=== PATIENT | female | born 1990 | race Two or more races ===

== ENCOUNTER 2023-12-29 08:16 | Inpatient (IN) | payer OTHER ==
[~2023-12-29] VITALS: Ht 165.1 cm; Wt 95.3 kg
[2023-12-29] MEDS ORDERED: RINGERS SOLUTION,LACTATED 1,000 ML IV SCH (08:30)
[2023-12-29] MEDS ORDERED: AMPICILLIN SODIUM 2,000 MG VIAL IV ONE (08:30)
[2023-12-29] MEDS ORDERED: AMPICILLIN SODIUM 1,000 MG VIAL IV SCH (09:00)
[2023-12-29] MEDS ORDERED: PRENATAL TABLE1 EAC4 PO (09:34)
[2023-12-29] MEDS ORDERED: IRON236 MG PO (09:34)
[2023-12-29 09:44] LABS: PH,URINE 6.5 (5.0-8.0); URINE APPEARANCE Turbid; URINE BILIRRUBIN Negative (NEGATIVE); URINE BLOOD Small; URINE COLOR Dark Yellow; URINE GLUCOSE Negative (NEGATIVE); URINE LEUKOCYTE Moderate; URINE NITRATE Negative
[2023-12-29 09:45] LABS: URINE EPITHELIAL CELLS 97.7 uL (0.0-38.8); URINE RBC 187.3 uL (0.0-20.8); URINE WBC 368.8 uL (0.0-23.2)
[2023-12-29 09:54] LABS: HEMATOCRIT 29.3 % (36.0-45.00); MEAN CELL VOLUME 86.8 fL (80.00-100.00); MEAN CORPUSCULAR HEMOGLOBIN 29.6 pg (27.00-32.0); MEAN CORPUSCULAR HGB CONC 34.1 g/dl (32.0-36.0); PLATELET COUNT 330 K/uL (150-450); RED BLOOD COUNT 3.38 M/uL (4.00-6.00); RED CELL DISTRIBUTION WIDTH 16.3 % (11.5-14.5)
[2023-12-29] MEDS ORDERED: OXYTOCIN 500 ML IV SCH (10:00)
[2023-12-29 10:13] LABS: INR 0.96; PROTHROMBIN TIME 10.1 SECONDS (9.0-11.5)
[2023-12-29] MEDS ORDERED: FAMOTIDINE/PF 20 MG/2 ML VIAL IV PUSH NR (10:15)
[2023-12-29 10:16] LABS: ALBUMIN 2.8 gm/dL (3.4-5.0); BILIRUBIN TOTAL 0.3 mg/dL (0.3-1.2); CALCIUM 9.1 mg/dL (8.5-10.1); CREATININE SERUM 0.52 mg/dL (0.55-1.02); GFR 134.19; GLOBULINA 3.6 G/DL (2.4-3.5); POTASSIUM 3.93 mEq/L (3.5-5.1); TOTAL PROTEIN 6.4 gm/dL (6.4-8.2)
[2023-12-29 10:28] LABS: URINE BACTERIA > 9821.5 uL (0.0-1933); URINE PROTEIN 100 (NEGATIVE)
[2023-12-29 10:36] LABS: URINE CRYSTALS MODERATE /HPF; URINE YEAST NEGATIVE /hpf
[2023-12-29] MEDS ORDERED: MORPHINE SULFATE 4 MG/ML CARTRIDGE IV PRN (13:45)
[2023-12-29] MEDS ORDERED: PROMETHAZINE HCL 25 MG/ML AMPUL IV ONE (15:45)
[2023-12-29] MEDS ORDERED: CEFAZOLIN SODIUM 1,000 MG VIAL IV SCH (21:30)
[2023-12-29] MEDS ORDERED: CITRIC ACID/SODIUM CITRATE 30 ML BLIST.PACK PO SCH (21:30)
[2023-12-29] MEDS ORDERED: CHLORHEXIDINE GLUCONATE 120 ML BOTTLE TOP ONE (23:45)
[2023-12-30] MEDS ORDERED: AZITHROMYCIN 500 MG VIAL IV ONE (00:15)
[2023-12-30] MEDS ORDERED: OXYTOCIN 1,000 ML IV ONE (00:30)
[2023-12-30] MEDS ORDERED: KETOROLAC TROMETHAMINE 30 MG VIAL IV SCH (00:30)
[2023-12-30] MEDS ORDERED: ERYTHROMYCIN BASE 1 GM TUBE OP ONE (00:45)
[2023-12-30] MEDS ORDERED: OXYTOCIN 10 UNIT/ML (10ML) IV ONE (00:45)
[2023-12-30] MEDS ORDERED: MORPHINE SULFATE 4 MG/ML VIAL IV SCH (01:00)
[2023-12-30] MEDS ORDERED: ACETAMINOPHEN 500 MG GEL..CAP PO SCH (06:00)
[2023-12-30 08:00] LABS: ALBUMIN 2.2 gm/dL (3.4-5.0); BILIRUBIN TOTAL 0.69 mg/dL (0.3-1.2); CALCIUM 8.5 mg/dL (8.5-10.1); CREATININE SERUM 0.46 mg/dL (0.55-1.02); GFR 154.58; GLOBULINA 3.1 G/DL (2.4-3.5); HEMATOCRIT 28.7 % (36.0-45.00); HEMOGLOBIN 9.7 g/dL (12.0-15.00); MEAN CELL VOLUME 88.3 fL (80.00-100.00); PLATELET COUNT 297 K/uL (150-450); POTASSIUM 3.95 mEq/L (3.5-5.1); RED BLOOD COUNT 3.25 M/uL (4.00-6.00); RED CELL DISTRIBUTION WIDTH 16.1 % (11.5-14.5); TOTAL PROTEIN 5.3 gm/dL (6.4-8.2)
[2023-12-30] MEDS ORDERED: PNV,CALCIUM 72/IRON/FOLIC ACID 1 TAB TABLET PO SCH (09:00)
[2023-12-30] MEDS ORDERED: GABAPENTIN 300 MG CAPSULE PO SCH (09:00)
[2023-12-30] MEDS ORDERED: SIMETHICONE 125 MG CAPSULE PO SCH (09:00)
[2023-12-30] MEDS ORDERED: DOCUSATE SODIUM 100MG CAP PO SCH (09:00)
[2023-12-30] MEDS ORDERED: IBUprofen 600 MG TABLET PO SCH (12:00)
[2024-01-01] MEDS ORDERED: ERYTHROMYCIN BASE 1 GM TUBE OP ONE (18:00)
[2024-01-01] MEDS ORDERED: OXYTOCIN 10 UNITS/ML VIAL IV ONE (18:00)
== END 2023-12-31 13:58 | disposition home or self-care (01) | DRG 788 ==
LOC: OB/GYN 08:16 → LDR 08:16 → OB/GYN 12-30 00:35
PROVIDERS: ADMIT Obstetrics & Gynecology Gynecology; ATTEND Obstetrics & Gynecology Gynecology
PROC: 10D00Z1 Extraction of Products of Conception, Low, Open Approach (ICD-10-PCS; principal; 2023-12-29)
PROC: 4A1HXCZ Monitoring of Products of Conception, Cardiac Rate, External Approach (ICD-10-PCS; 2023-12-29)
DX: O82 Encounter for cesarean delivery without indication (principal); O62.1 Secondary uterine inertia; O99.824 Streptococcus B carrier state complicating childbirth; Z3A.38 38 weeks gestation of pregnancy; Z37.0 Single live birth; Z20.822 Contact with and (suspected) exposure to COVID-19

== ENCOUNTER 2024-01-06 17:25 | Inpatient (IN) | payer OTHER ==
[~2024-01-06] VITALS: Ht 165.1 cm; Wt 87.5 kg
[~2024-01-06 17:25] MED LIST: IRON236 MG PO; PRENATAL TABLE1 EAC4 PO
[2024-01-06] MEDS ORDERED: hydrALAZINE HCL 20 MG VIAL IV STA (17:50)
[2024-01-06] MEDS ORDERED: MAGNESIUM SULFATE IN WATER 100 ML IV ONE (18:00)
[2024-01-06] MEDS ORDERED: RINGERS SOLUTION,LACTATED 1,000 ML IV SCH (18:00)
[2024-01-06] MEDS ORDERED: MAGNESIUM SULFATE IN WATER 500 ML IV SCH (18:00)
[2024-01-06] MEDS ORDERED: SIMETHICONE 125 MG CAPSULE PO SCH (18:27)
[2024-01-06] MEDS ORDERED: ACETAMINOPHEN 500 MG GEL..CAP PO PRN (18:30)
[2024-01-06] MEDS ORDERED: FAMOTIDINE/PF 20 MG/2 ML VIAL IV PUSH SCH (18:30)
[2024-01-06] MEDS ORDERED: LABETALOL HCL 200 MG TABLET PO SCH (19:00)
[2024-01-06 19:08] LABS: HEMATOCRIT 29.9 % (36.0-45.00); HEMOGLOBIN 10.2 g/dL (12.0-15.00); MEAN CELL VOLUME 89.2 fL (80.00-100.00); MEAN CORPUSCULAR HEMOGLOBIN 30.4 pg (27.00-32.0); MEAN CORPUSCULAR HGB CONC 34.1 g/dl (32.0-36.0); PLATELET COUNT 576 K/uL (150-450); RED BLOOD COUNT 3.35 M/uL (4.00-6.00); RED CELL DISTRIBUTION WIDTH 17.4 % (11.5-14.5)
[2024-01-06 19:22] LABS: INR 1.06; PARTIAL THROMBOPLASTIN TIME 31.3 SECONDS (22.0-34.0); PROTHROMBIN TIME 11.1 SECONDS (9.0-11.5)
[2024-01-06 19:27] LABS: ALBUMIN 3.3 gm/dL (3.4-5.0); BILIRUBIN TOTAL 0.38 mg/dL (0.3-1.2); CALCIUM 9.1 mg/dL (8.5-10.1); CREATININE SERUM 0.72 mg/dL (0.55-1.02); GFR 92.18; GLOBULINA 3.4 G/DL (2.4-3.5); POTASSIUM 3.96 mEq/L (3.5-5.1); TOTAL PROTEIN 6.7 gm/dL (6.4-8.2)
[2024-01-07 06:54] LABS: HEMOGLOBIN 10.3 g/dL (12.0-15.00); MEAN CELL VOLUME 88.4 fL (80.00-100.00); MEAN CORPUSCULAR HEMOGLOBIN 29.4 pg (27.00-32.0); MEAN CORPUSCULAR HGB CONC 33.2 g/dl (32.0-36.0); PLATELET COUNT 569 K/uL (150-450); RED BLOOD COUNT 3.51 M/uL (4.00-6.00); RED CELL DISTRIBUTION WIDTH 17.4 % (11.5-14.5)
[2024-01-07 07:11] LABS: ALBUMIN 2.9 gm/dL (3.4-5.0); BILIRUBIN TOTAL 0.3 mg/dL (0.3-1.2); CALCIUM 7.8 mg/dL (8.5-10.1); CREATININE SERUM 0.67 mg/dL (0.55-1.02); GFR 100.16; GLOBULINA 3.1 G/DL (2.4-3.5); POTASSIUM 3.61 mEq/L (3.5-5.1)
[2024-01-07 07:27] LABS: MAGNESIUM 5.6 mg/dL (1.8-2.4)
[2024-01-07 16:21] LABS: HEMATOCRIT 31.4 % (36.0-45.00); HEMOGLOBIN 10.5 g/dL (12.0-15.00); MEAN CELL VOLUME 87.9 fL (80.00-100.00); MEAN CORPUSCULAR HEMOGLOBIN 29.5 pg (27.00-32.0); MEAN CORPUSCULAR HGB CONC 33.5 g/dl (32.0-36.0); PLATELET COUNT 588 K/uL (150-450); RED BLOOD COUNT 3.57 M/uL (4.00-6.00); RED CELL DISTRIBUTION WIDTH 17.4 % (11.5-14.5)
[2024-01-07 17:01] LABS: ALBUMIN 2.9 gm/dL (3.4-5.0); BILIRUBIN TOTAL 0.28 mg/dL (0.3-1.2); CALCIUM 7.6 mg/dL (8.5-10.1); CREATININE SERUM 0.64 mg/dL (0.55-1.02); GFR 105.6; POTASSIUM 4.02 mEq/L (3.5-5.1); TOTAL PROTEIN 5.9 gm/dL (6.4-8.2)
[2024-01-07 17:04] LABS: MAGNESIUM 6.1 mg/dL (1.8-2.4)
== END 2024-01-07 16:00 | disposition home or self-care (01) | DRG 776 ==
LOC: LDR 17:25
PROVIDERS: ADMIT Obstetrics & Gynecology Gynecology; ATTEND Obstetrics & Gynecology Gynecology
DX: O16.5 Unspecified maternal hypertension, complicating the puerperium (principal); Z20.822 Contact with and (suspected) exposure to COVID-19